=== PATIENT | female | born 1940 | race Caucasian/White ===

== ENCOUNTER 2020-04-01 20:23 | Inpatient (IN) | payer OTHER, MEDICARE ==
[~2020-04-01] VITALS: Ht 162.6 cm; Wt 81.9 kg
--- NOTE | ~2020-04-01 | HC ---
[facility] [place] [address] CONSULTATION Name: ACOSTA SALINAS Room #: 237-P ADM IN M.R.#: [id number] Admission: 04/01/20 Attend Phys: Giulia Montenegro Discharge: Date of : 40 Report #: [id number] THIS REPORT FOR: cc: Maria M Carl MD,Maria M Sheriff,Román Varghese MD ~ DATE OF SERVICE: 04/08/2020 HISTORY OF PRESENT ILLNESS: This is an 80-year-old female patient for whom a consult was called to evaluate the patient because the nurse attending this patient rosaight had noticed that the patient was not moving the left side well. I talked to her multiple times on the phone and subsequently came and saw this patient. It is not clear when it happened. In fact, there is another nurse who was taking care of this patient earlier, and this nurse who is cap and hat production supervisor, who is attending today took care of her on Tuesday. Apparently, she was in a better shape on Tuesday. I reviewed the patient's record and it would appear that the patient did have oxygen desaturation when she came in at least and continued to have trouble with oxygenation. I reviewed the ID notes. I still cannot determine the time of onset in this patient if she had a stroke. Before calling, a noncontrast CT of the head was done. The report is confusing. However, I looked at the films, it showed pretty extensive disease. She has a pretty extensive chronic disease in the brain. On top of that, ____ some attenuation in the left middle cerebral artery distribution, and I am not sure about that. We can discuss the CT first thing in the morning, but if she already has something showing up on the CT scan, that usually means it is an old thing and probably started somewhere about 24 hours ago. I had a long talk with the patient's son to get some history. This patient apparently has been diagnosed with dementia. This happened long time ago, and the son estimate somewhere between 1-2 years ago. He said he gives her the medication. He usually fills up the syringe for insulin. She injects it herself after that. One day, she did not know what to do with the syringe, and then they did further testing and diagnosed her with dementia and put her on Aricept. Subsequently, one day she became aphasic. She was taken to [facility], and there they diagnosed her with stroke. So, the patient had baseline dementia and subsequently she has stroke which caused aphasia. She lives with her son. He says that he has been working from home and so he is there all the time. He prepares meals for her, he gives her the medications, but otherwise she is able to take the shower herself. At one time, the patient used to be on a blood thinner, he did not know what blood thinner the patient was on. She had a GI bleed and it was stopped. She usually goes to [facility] and all her records are in [facility]. She came here because [facility] apparently [facility] [address] [place] [address] CONSULTATION Name: ACOSTA SALINAS Room #: 237-P ADM IN M.R.#: [id number] Admission: 04/01/20 Attend Phys: Giulia Montenegro Discharge: Date of : 40 Report #: [id number] was full. REVIEW OF SYSTEMS: Pretty extensive. Her kidney function is estimated only at 18. Her sodium is 152. Her glucose is 298. Her last white count was 16.8, platelet count is 272. I do not know whether she was ever diagnosed with atrial fibrillation. That was a relevant 14-point review of system I can get, which is very extensive actually in this patient. PAST MEDICAL HISTORY: Positive for stroke and dementia. FAMILY HISTORY: Unremarkable. SOCIAL HISTORY: She lives with her son. PHYSICAL EXAMINATION: Pretty limited. She is awake. When I ask her to follow commands, she does not do that. She is coughing almost continuously. It is very difficult to do any further evaluation because she will not even follow simple commands for me. I tried to do the cranial nerve examination and was unsuccessful. I asked her to move any of her extremity and she will not do that, but she does respond to the pain. Her both plantars are classically upgoing. Her reflexes are absent. That is all the examination I can do. IMAGING: CT scan showed extensive chronic changes consistent with dementia. IMPRESSION: This patient with a known diagnosis of dementia and subsequently developed aphasia and now is having severe multisystem problems. I do not know whether she had a stroke on top of that or not and if the stroke occurred, when did it happen. Some of the notes do indicate that the patient was more communicative before, but they also indicate that in an effort to conserve personal protective equipment, the patient was seen from the bedside window. According to the nurses, she was okay on Tuesday, but when this exactly started is not clear. This patient also had multiple falls before she came in. Situation is difficult in this patient. Firstly, with so many problems going on which can potentially cause encephalopathy and affect the brain, it is very difficult to diagnose a stroke. The problem is even worse because the patient has renal failure and we cannot do a CT angio and doing any intervention will be even more problem in this patient because of the same reason because we have to inject the dye. She is also allergic to DYE according to the son and the patient's chart. The timing of onset is not clear. She has moderate dose of heparin. I discussed all the options with the son. I discussed with him that we can be aggressive and try to do all the testing and see if she is a candidate for any intervention. The other option in this regard is because of her multisystem problem, because of her underlying dementia, because of her stroke which caused [facility] [address] [place] [address] CONSULTATION Name: ACOSTA SALINAS Room #: [facility]- ADM IN M.R.#: [id number] Admission: 04/01/20 Attend Phys: Giulia Montenegro Discharge: Date of : 40 Report #: [id number] aphasia, and now numerous problems which can cause metabolic encephalopathy, it may be desirable to continue conservative care in this patient and not to do any intervention. After discussing all these options with him, the plan is not to do any testing as far as stroke is concerned and continue conservative care. That is a reasonable approach in this patient whose prognosis is extremely guarded because of her aphasia causing stroke, severely abnormal chronic changes on the CT, prior history of dementia for which she is on Aricept, multisystem problems including renal and hyponatremia and hypoxemia, and the onset of the symptoms not clear. Presently, the plan is to continue conservative care after talking all the options with the son, and please call if the things change or decision is made to change the level of the care. I will also talk to piece meat trimmer later in the morning, Thank you very much for this referral. More than 50 minutes of time was spent taking care of this patient today and majority was spent counseling and coordinating, reviewing the images and talking to the nurses multiple times, and having a long talk with the patient's son. By: [id number] Román Sheriff MD /nt
[2020-04-01 20:27] VITALS: BP 156/50
[2020-04-01 21:01] LABS: BE(vivo) -8.5 mmol/L (-2 to +3); PCO2 25.9 mmHg (35.0-45.0); pH 7.382 (7.360-7.450); sO2 90.8 % (92.0-98.0)
[2020-04-01 21:11] LABS: ABSOLUTE NEUTROPHILS 9.3 thou/uL (1.4-8.2); BASOPHILS 0.5 % (0.0-2.0); HEMATOCRIT 33.7 % (37.0-47.0); LYMPHOCYTES 3.4 % (24.0-44.0); MCHC 32.7 g/dL (28.0-37.0); MCV 82.6 fL (80.0-100.0); MONOCYTES 6.6 % (1.0-8.0); PLATELET COUNT 235 thou/uL (150-400); POLYS 89.5 % (36.0-66.0); RBC 4.08 mil/uL (4.20-5.00); RDW 15.3 % (10.5-14.5); WBC 10.3 thou/uL (4.0-11.0)
[2020-04-01] MEDS ORDERED: LEVO-T50 MCG PO (21:17)
[2020-04-01] MEDS ORDERED: NORVASC 2.5 MG2.5 M1 PO (21:18)
[2020-04-01] MEDS ORDERED: HYDRALAZINE 5050 MG PO (21:18)
[2020-04-01] MEDS ORDERED: COZAAR 25 MG TA25 M1 PO (21:19)
[2020-04-01 21:20] LABS: ANION GAP 12 mmol/L (7-16); BUN 58 mg/dL (7-18); CHLORIDE 105 mmol/L (98-107); CO2 18 mmol/L (21-32); CREATININE 3.3 mg/dL (0.6-1.0); GLUCOSE 170 mg/dL (74-106); POTASSIUM 4.9 mmol/L (3.5-5.1); SODIUM 135 mmol/L (136-145)
[2020-04-01] MEDS ORDERED: PROTONIX40 M4 PO (21:20)
[2020-04-01] MEDS ORDERED: TRADJENTA5 MG ×2 (21:21→21:22)
[2020-04-01] MEDS ORDERED: SERTRALINE HCL100 MG PO (21:21)
[2020-04-01] MEDS ORDERED: ASA81BEC PO (21:22)
[2020-04-01] MEDS ORDERED: COSAMIN ASU CA1 EAC1 PO (21:22)
[2020-04-01] MEDS ORDERED: METAMUCIL PLUS1 EACH PO (21:23)
[2020-04-01] MEDS ORDERED: SUPER THERAVIT1 EACH PO (21:23)
[2020-04-01] MEDS ORDERED: TRYPTOPHAN PO (21:24)
[2020-04-01] MEDS ORDERED: CRESTOR5 MG PO (21:24)
[2020-04-01] MEDS ORDERED: ARICEPT10 M1 PO (21:24)
[2020-04-01] MEDS ORDERED: ERGOCALCIFEROL1 GM PO (21:26)
[2020-04-01 21:34] LABS: ALBUMIN 2.2 g/dL (3.4-5.0); DIRECT BILIRUBIN < 0.1 mg/dL (<0.1-0.2); SGOT 52 U/L (15-37); SGPT 24 U/L (30-65); TOTAL BILIRUBIN 0.3 mg/dL (0.2-1.0); TOTAL PROTEIN 6.3 g/dL (6.4-8.2); TROPONIN-I <0.06 ng/mL (<0.06)
[2020-04-02] VITALS (35 sets, daily range): BP systolic 121–153; BP diastolic 37–51
[2020-04-02 07:31] LABS: HEMATOCRIT 32.5 % (37.0-47.0); HEMOGLOBIN 10.7 gm/dL (12.0-15.0); MCH 27.1 pg (26.0-34.0); MCHC 32.9 g/dL (28.0-37.0); MCV 82.3 fL (80.0-100.0); RBC 3.95 mil/uL (4.20-5.00); RDW 15.3 % (10.5-14.5); WBC 8.1 thou/uL (4.0-11.0)
--- NOTE | 2020-04-02 07:45 | EKG ---
[facility] [place] [address] ELECTROCARDIOGRAM REPORT Name: ACOSTA SALINAS Room #: [facility] ADM IN M.R.#: [id number] Admission: 04/01/20 Attend Phys: Giulia Montenegro Discharge: Date of : 40 Report #: [id number] THIS REPORT FOR: cc: Maria M Carl MD, Linda MD Lundgren,Mike Mane MD [facility] ~ THIS REPORT FOR: //name// [facility] ED Test Date: 2020-04-01 Test Time: 20:53:48 Pat Name: ACOSTA SALINAS Department: Room: [facility] Gender: F Desk Lieutenant: jose francisco : 1940 Requested By: Yonis Ignacio Order Number: [id number] MD: Mike Malin Measurements Intervals [place] Rate: 79 P: 77 ID: [id number] QRS: 10 QRSD: 87 T: 30 QT: 366 QTc: 420 Interpretive Statements Sinus rhythm Poor R wave progression No previous ECG available for comparison Electronically Signed On 04-02-2020 7:45:29 CDT by Mike Malin [email or web address] <ELECTRONICALLY SIGNED> By: Mike Malin MD, FACC 04/02/2045 52 52 Mike Malin MD, [facility] /EPI
[2020-04-02 08:31] LABS: ANION GAP 12 mmol/L (7-16); BUN 61 mg/dL (7-18); CALCIUM 8.9 mg/dL (8.5-10.1); CHLORIDE 107 mmol/L (98-107); CHOLESTEROL 117 mg/dL (<200); CO2 18 mmol/L (21-32); CREATININE 3.4 mg/dL (0.6-1.0); GLUCOSE 213 mg/dL (74-106); HDL CHOLESTEROL 46 mg/dL (>40); LDL CHOLESTEROL 49 mg/dL (<100); POTASSIUM 4.5 mmol/L (3.5-5.1); SODIUM 137 mmol/L (136-145); TC:HDL 2.5 Ratio (Not establshd); TRIGLYCERIDE 114 mg/dL (<150); VLDL 23 mg/dL (<40)
[2020-04-02 10:08] LABS: BE(vivo) -9.1 mmol/L (-2 to +3); HCO3 14.4 mmol/L (22.0-26.0); pH 7.381 (7.360-7.450); sO2 86.1 % (92.0-98.0)
[2020-04-02 10:09] LABS: PCO2 24.9 mmHg (35.0-45.0); PO2 50.6 mmHg (80.0-100.0)
[2020-04-02 11:30] LABS: BE(vivo) -10.5 mmol/L (-2 to +3); HCO3 13.8 mmol/L (22.0-26.0); PCO2 26.4 mmHg (35.0-45.0); pH 7.336 (7.360-7.450); sO2 96.3 % (92.0-98.0)
--- NOTE | 2020-04-02 15:45 | NUR ---
ADMIT ICU BATH GIVEN. PLACED ON MONITOR. SEE VSS . TOLORATION BIPAP . RR [address] CAMARGO MADE AWARE. WHEN PT CALMS DOWN RR IN THE MID 30S. MONITOR NOT PICKING UP AL OF PT SHALLOW BREATHS. ATTEMPTED TO CALL PT SON. LEFT MESSAGE.
--- NOTE | 2020-04-02 16:00 | NUR ---
NOTIFIED DR. CAMARGO PT BREATING IN THE 50S AT TIMES. IT SEEMED TO GET BETTER MID 30S ONCE WARMED UP. PT VERY ANXIOUS WHEN TOUCHED.
--- NOTE | 2020-04-02 16:00 | NUR ---
FAILED IV ATTEMTS BY THIS RN AND A CO WORKER. WAITING FOR IV NURSE TO PLACE PICC.
--- NOTE | 2020-04-02 18:00 | NUR ---
PT SON CALLED BACK. HISTORY OBTAINED. UPDATE GIVEN. EMOTIONAL SUPPORT GIVEN.
--- NOTE | 2020-04-02 20:37 | NUR ---
VASCULAR ACCESS CALLED FOR PICC LINE PLACEMENT PT UNABLE TO LAY DOWN FOR CVAD. PICC WAS PLACED WITH PT SITTING UP IN BED DYSPNIC WITH BIPAP ON. PT'S LAVERNE BRACHIAL WAS ATTEMPTED BUT UNABLE TO THREAD CATHETER, SO LAVERNE BASILIC CANNULATED TL 5FR PICC TRIMMED TO 42CM INSERTED TO 2CM EXTERNAL. PT TOLERATED WELL. STAT CXR ORDERED
--- NOTE | 2020-04-02 21:34 | NUR ---
CXR CONFIRMED PICC IN SVC, PICC RELEASED FOR IMMEDIATE USE PER PROTOCOL TO MUD WORKER
[2020-04-03] VITALS (58 sets, daily range): BP systolic 110–149; BP diastolic 36–47
[2020-04-03 01:06] LABS: GLYCOHEMOGLOBIN (HGB A1C) 7.1 % (4.8-5.6)
[2020-04-03 02:23] LABS: BE(vivo) -8.9 mmol/L (-2 to +3); PCO2 26.6 mmHg (35.0-45.0); pH 7.368 (7.360-7.450); sO2 98.8 % (92.0-98.0)
[2020-04-03 02:30] LABS: ABSOLUTE NEUTROPHILS 8.3 thou/uL (1.4-8.2); HEMATOCRIT 30.8 % (37.0-47.0); HEMOGLOBIN 10.1 gm/dL (12.0-15.0); LYMPHOCYTES 3.2 % (24.0-44.0); MCH 26.8 pg (26.0-34.0); MCHC 32.7 g/dL (28.0-37.0); MCV 81.9 fL (80.0-100.0); MONOCYTES 6.2 % (1.0-8.0); PLATELET COUNT 235 thou/uL (150-400); POLYS 90.6 % (36.0-66.0); RBC 3.75 mil/uL (4.20-5.00); RDW 15.6 % (10.5-14.5); WBC 9.2 thou/uL (4.0-11.0)
[2020-04-03 02:37] LABS: ALBUMIN 1.9 g/dL (3.4-5.0); CALCIUM 9.4 mg/dL (8.5-10.1); CREATININE 3.8 mg/dL (0.6-1.0); POTASSIUM 4.3 mmol/L (3.5-5.1); TOTAL BILIRUBIN 0.2 mg/dL (0.2-1.0); TOTAL PROTEIN 5.8 g/dL (6.4-8.2)
--- NOTE | 2020-04-03 03:46 | NUR ---
This RN to bedside at 1900. Pt currently on 60% Bipap and RR from 20-40bpm. This RN called Dr Craig at 2300 to update him on patient status. Dr Craig to evaluate at bedside around 0000. Dr Craig ordered an ABG and started pt on precedex gtt for anxiety- which I thought could be contribuiting to her high RR. Pt also has only had 230 urine output out as of 0330. Dr Craig ordered 25g of albumin and 40 of lasix in the AM. Pt down to 40% on Bipap and RR is better. Pt also has confirmed COVID positive results from this facility. Results communicated to Dr. Craig. Will continue to monitor.
--- NOTE | 2020-04-03 11:57 | NUR ---
chart review, unable to visit [facility] on ppe, + covid. requiring use of bipap. cm visited with son tony, who going to email dpoa paper work to hospital so can have it on file. marciano lives with kika jimenez, ranch style home. 2 step from front door in or out of home, then all in main level. independent when feeling ok. has walker but never used it before. tony manage her medication daily. had [facility] in past interim and would use them again. been to skilled rehab at [facility] and [facility] in past. no longer drives vehicle per son tony. noted in chart she has had falls at home. will cont following as needed for dc needs.
--- NOTE | 2020-04-03 15:39 | NUR ---
ASSUMED CARE @ 0700 04/03/20, PT ASSESSMENTS AND VSS COMPLETE PER ICU PROTOCOL. PT ENCOUNTERED ON PRECEDEX GTT, PT BRADYCARDIAC IN THE 50'S, THEN HR GOES IN THE 40'S, RN TITRATES PRECEDEX DOWN, HR DIPS IN THE 30'S, PRECEDEX TURNED OFF, DR CAMARGO MADE AWARE, LAB ORDERS RECIEVED. LAB RESULTS CALLED TO DR CAMARGO, NO NEW ORDERS RECIEVED. PT ENCOUNTERED ON BIPAP THIS AM, 40% FIO2, SATS IN HIGH 90'S, NO SIGNS OF SOB NOTED.
[2020-04-04] VITALS (28 sets, daily range): BP systolic 134–168; BP diastolic 38–68
[2020-04-04 02:39] LABS: ABSOLUTE NEUTROPHILS 13.1 thou/uL (1.4-8.2); BASOPHILS 0.1 % (0.0-2.0); HEMATOCRIT 30.4 % (37.0-47.0); HEMOGLOBIN 9.9 gm/dL (12.0-15.0); LYMPHOCYTES 1.9 % (24.0-44.0); MCH 26.7 pg (26.0-34.0); MCHC 32.4 g/dL (28.0-37.0); MCV 82.4 fL (80.0-100.0); PLATELET COUNT 258 thou/uL (150-400); RBC 3.68 mil/uL (4.20-5.00); RDW 15.6 % (10.5-14.5); WBC 13.6 thou/uL (4.0-11.0)
[2020-04-04 03:02] LABS: ALBUMIN 2.2 g/dL (3.4-5.0); CALCIUM 9.1 mg/dL (8.5-10.1); CREATININE 4.1 mg/dL (0.6-1.0); MAGNESIUM 2.2 mg/dL (1.8-2.4); PHOSPHORUS 4.5 mg/dL (2.5-4.9); POTASSIUM 4.2 mmol/L (3.5-5.1); TOTAL BILIRUBIN 0.3 mg/dL (0.2-1.0); TOTAL PROTEIN 5.8 g/dL (6.4-8.2)
[2020-04-04 03:35] LABS: INR 1.1; PROTIME 11.2 Seconds (9.3-11.4)
[2020-04-04 03:40] LABS: FIBRINOGEN 551.2 mg/dL (210-360)
--- NOTE | 2020-04-04 13:25 | NUR ---
pt cont to requirer bipap FIO2 40, cont with iv meds. no anticipated weekend dc from hospital. will cont following as needed for dc needs. cm visited with son tony yesterday and dpoa paperwork placed on pt chart.
--- NOTE | 2020-04-04 18:27 | NUR ---
ASSUMED CARE AT 0700. PATIENT AFEBRILE. NO BM. ADEQUATE UOP. PATIENT SWITCHED FROM BIPAP MASK TO HIGH FLOW NASAL CANNULA AT 10 L. PATIENT TOLERATED HIGH FLOW NC WELL. TPN TO BE STARTED TONIGHT. SON/DPOA CONTACTED AT 1800 AND HE AND THE PATIENT WERE UPDATED AND EDUCATED ON THE PLAN OF CARE AND PATIENT CONDITION. IV FLUIDS STARTED. PATIENT PROGRESSING TOWARDS THE PLAN OF CARE.
[2020-04-05] VITALS (24 sets, daily range): BP systolic 139–165; BP diastolic 38–68
[2020-04-05 04:34] LABS: INR 1.1; PROTIME 11.1 Seconds (9.3-11.4)
[2020-04-05 04:39] LABS: FIBRINOGEN 411.7 mg/dL (210-360)
[2020-04-05 04:42] LABS: BASOPHILS 0.3 % (0.0-2.0); HEMATOCRIT 28.2 % (37.0-47.0); HEMOGLOBIN 9.2 gm/dL (12.0-15.0); LYMPHOCYTES 1.2 % (24.0-44.0); MCH 26.8 pg (26.0-34.0); MCHC 32.7 g/dL (28.0-37.0); MONOCYTES 3.5 % (1.0-8.0); PLATELET COUNT 272 thou/uL (150-400); RBC 3.44 mil/uL (4.20-5.00); RDW 15.7 % (10.5-14.5); WBC 16.8 thou/uL (4.0-11.0)
[2020-04-05 05:18] LABS: ALBUMIN 2.1 g/dL (3.4-5.0); CALCIUM 9.3 mg/dL (8.5-10.1); CREATININE 3.9 mg/dL (0.6-1.0); POTASSIUM 3.9 mmol/L (3.5-5.1); TOTAL BILIRUBIN 0.3 mg/dL (0.2-1.0); TOTAL PROTEIN 5.6 g/dL (6.4-8.2)
--- NOTE | 2020-04-05 06:40 | NUR ---
PATIENT REMAIN A/O TO PERSON AND PLACE. DENIES SOB, N/V, PAIN. ON 8L VIA HFNC. AFEBRILE. VSS. MANLEY IN PLACE WITH MINIMAL U/O. MANLEY CARE PROVIDED. PLASMA TRANSFUSED. TOLERATED WELL. DENIES NEEDS. WILL KEEP MONITORING.
--- NOTE | 2020-04-05 18:23 | NUR ---
ASSUMED CARE THIS AM, ALERT AND ORIENTED TO PLACE AND PERSON. MOUNS BUT DENIES ANY PAIN, ANXIOUS, DR HUMPHREY NOTIFIED AND ORDERS FOR ATIVAN RECIEVED AND MEDICATED. VS WITHIN LIMITS. REMIANS ON 10L O2 HIGH FLOW, AND VENTI MASK AT 55%. MANLEY TO DD WITH ADQUITE AMOUNT OF URINE, AND WILL CONTINUE WITH POC.
[2020-04-06] VITALS (28 sets, daily range): BP systolic 143–189; BP diastolic 42–109
[2020-04-06 05:10] LABS: CALCIUM 9.7 mg/dL (8.5-10.1); PHOSPHORUS 3.1 mg/dL (2.5-4.9)
[2020-04-06 05:20] LABS: CREATININE 2.7 mg/dL (0.6-1.0)
--- NOTE | 2020-04-06 16:02 | NUR ---
ASSESSMENT CHARTED, VSS AND AFEBRILE, BG 400 AT 12, DR HUMPHREY NOTIFIED, AND SLIDING SCALE ADJUSTED. Q2 TURN POSITIONED FOR COMFORT NEEDED. PATIENT RESTLESS AT TIMED AND MEDICATED AND MEDICATED INDICATED. AND WILL CONTINUE WITH POC.
[2020-04-07] VITALS (23 sets, daily range): BP systolic 111–194; BP diastolic 35–121
--- NOTE | 2020-04-07 06:04 | NUR ---
This RN to beside at 1900. Pt extremely anxious and unable to respond to any orientation questions. Pt also moaning and grimacing when touched or near. This RN gave IV ativan and morphine to help patient relax. Pt SR throughout the night and BP stable. There was a period where patient was consistently satting at 88%. This RN placed pt on 15L nonrebreather for about 30 minutes, patient recovered to 96%, slowly transitioned back to the ventimask, and patient is currently on 50%, and satting 91-91% SaO2. Pt afebrile, adequate urine output and receiving IV fluids and TPN. Pt requiring higher oxygen demand and heavy monitoring, so therefore is not progressing towards goals.
[2020-04-07 06:29] LABS: ALBUMIN 1.5 g/dL (3.4-5.0); CALCIUM 9.9 mg/dL (8.5-10.1); CREATININE 2.6 mg/dL (0.6-1.0); PHOSPHORUS 2.7 mg/dL (2.5-4.9); POTASSIUM 4.2 mmol/L (3.5-5.1); TOTAL BILIRUBIN 0.2 mg/dL (0.2-1.0); TOTAL PROTEIN 5.2 g/dL (6.4-8.2)
[2020-04-07 11:58] LABS: BE(vivo) -4.3 mmol/L (-2 to +3); HCO3 19.6 mmol/L (22.0-26.0); PCO2 31.7 mmHg (35.0-45.0); pH 7.408 (7.360-7.450); sO2 88.6 % (92.0-98.0)
[2020-04-07 11:59] LABS: PO2 53.6 mmHg (80.0-100.0)
--- NOTE | 2020-04-07 13:43 | NUR ---
chart review, marciano requiring higher demands of oxygen. garth spoke with son tony, he just wanted cm to pass on to bedside nurse to [facility] with updates today cm passed on information to bedside nurse. will cont following as needed for dc needs.
--- NOTE | 2020-04-07 15:07 | NUR ---
PATIENT NOT PROGRESSING TOWARDS PLAN OF CARE. PATIENT CONTINUES ON 15L NONREREATHER MASK. WILL CONTINUE TO MONITOR FOR DETERIATION OF STATUS. SPOKE WITH SON ANTONIO SALINAS. GAVE HIM PATIENT UPDATE.
[2020-04-08] VITALS (42 sets, daily range): BP systolic 113–193; BP diastolic 45–131
--- NOTE | 2020-04-08 01:17 | NUR ---
2330 - NURSE ENTERED ROOM TO PERFORM ROUTINE ASSESSMENT. THIS NURSE NOTED THAT THE PTS LEFT PUPIL WAS 5MM AND FIXED, AND RIGHT PUPIL REMAINED THE SAME FROM PREVIOUS ASSESSMENT. PT ALSO APPEARED TO BE FAVORITING THE RIGHT ARM, MOVING IT AROUND, WHILE HOLDING THE LEFT ARM AT HER SIDE. PT MOVING BOTH FEET EQUALLY. AT 1999 PT WAS JUST MOANING AND GROANING, NOT FOLLOWING ANY COMMANDS. THIS RN ATTEMPTED A FULL NIH BUT IT WAS DIFFICULT TO COMPLETE GIVEN FINDINGS FROM 1999 ASSESSMENT. 2341 - PA LINEMAN A CLASS CALLED TWICE TO ATTEMPT TO NOTIFY OF NEURO CHANGES. NO ANSWER. 2343 - DR. GUERRA PAGED. 2346 - CALL BACK FROM DR. GUERRA. ORDER OBTAINED FOR STAT HEAD CT. 2351 - PA LINEMAN A CLASS CALLED AGAIN. UPDATED ON PTS CONDITION. GIVEN A ONETIME ORDER FOR LORAZEPAM TO HELP PT REMAIN STILL DURING HEAD CT. 0108 - RADIOLOGY CALLED WITH CRITICAL RESULTS FROM HEAD CT. 0128 - PA LINEMAN A CLASS CALLED AND UPDATED ON CT SCAN RESULTS. WILL CONSULT NEUROLOGY AND PLAN FOR MRI IN THE MORNING PER PA SESAY.
--- NOTE | 2020-04-08 04:24 | NUR ---
0244 - SPOKE WITH ANTONIO (SON & DPOA). GAVE HIM AN UPDATE ON PTS CONDITION. SON STATED THAT HE WOULD LIKE US TO CONTINUE DOING EVERYTHING WE CAN TO HELP. 0258 - I SPOKE WITH DR. CAMACHO AGAIN AND RELAYED WHAT THE SON HAD SAID. DR. CAMACHO IS COMING IN TO ASSESS THE PT FOR HIMSELF. 8370 - DR. CAMACHO AT BEDSIDE.
[2020-04-08 04:52] LABS: CALCIUM 10.4 mg/dL (8.5-10.1); CREATININE 2.6 mg/dL (0.6-1.0); POTASSIUM 3.6 mmol/L (3.5-5.1)
[2020-04-08 05:05] LABS: HEMATOCRIT 30.9 % (37.0-47.0); HEMOGLOBIN 9.9 gm/dL (12.0-15.0); MCH 26.7 pg (26.0-34.0); MCHC 32.1 g/dL (28.0-37.0); RBC 3.72 mil/uL (4.20-5.00); WBC 19.8 thou/uL (4.0-11.0)
[2020-04-08 10:31] LABS: BE(vivo) -3.4 mmol/L (-2 to +3); HCO3 20.9 mmol/L (22.0-26.0); PO2 64.2 mmHg (80.0-100.0); pH 7.394 (7.360-7.450); sO2 92.6 % (92.0-98.0)
--- NOTE | 2020-04-08 10:57 | NUR ---
SPOKE WITH SON ANTONIO. GAVE HIM UPDATE ON PT CONDITION. REQUESTED TO SPEAK WITH PT BUT WAS INFORMED THAT PT IS NOT COMMUNICATIVE AT THIS TIME. STATES HE WILL CALL BACK LATER.
[2020-04-09] VITALS (27 sets, daily range): BP systolic 107–201; BP diastolic 25–87
--- NOTE | 2020-04-09 03:14 | NUR ---
ASSESSMENT: PT OPENS EYES BUT DOES NOT TRACK. MOANS AND GROANS, DOES NOT FOLLOW COMMANDS. BP WAS ELEVATED 160/90...PRN ENALAPRIL GIVEN WITH GOOD RESULTS. BP NOW 144/49 PT IS NOW A DNR OF 04/08/20. TOLERATING BIPAP WITH 90% FIO2, SATS 99% PT MOVES LEFT ARM VERY SLOWLY. CT NEGATIVE FOR CVA. SR WITH PAC'S PER MONITOR. OCCASSIONALLY ST. FALL PRECAUTIONS IN PLACE. MANLEY PATENT WITH ADEQUATE AMTS OF OUTPUT. NO BM THIS SHIFT. POOR PROGRESS TOWARDS DC GOALS, WILL CONTINUE TO MONITOR.
--- NOTE | 2020-04-09 09:30 | NUR ---
PATIENT IN AFIB WITH RVR WITH VENT RESPONSE [address] TSANG NOTIFIED, CARDIZEM GIVEN PER ORDER.
[2020-04-09 11:02] LABS: CALCIUM 9.9 mg/dL (8.5-10.1); CREATININE 2.3 mg/dL (0.6-1.0); MAGNESIUM 2.2 mg/dL (1.8-2.4); PHOSPHORUS 4.4 mg/dL (2.5-4.9); POTASSIUM 4.5 mmol/L (3.5-5.1)
--- NOTE | 2020-04-09 12:03 | NUR ---
BLOOD GLUCOSE WAS 406. DR TSANG NOTIFIED AND WILL PLACE ORDERS. METOPOROL AND MORPHINE GIVEN FOR AFIB WITH RVR AND AGGITATION.
--- NOTE | 2020-04-09 15:00 | NUR ---
INSULIN DRIP STARTED. ATIVAN AND MORIPINE GIVEN FOR COMFORT.
--- NOTE | 2020-04-09 19:00 | NUR ---
PATIENT NOT PROGRESSING TOWARDS OUTCOME GOALS. INSULIN DRIP TITRATED. DR POWERS IN TO EXAMINE PATIENT. MORPHINE SULFATE AND ATIVAN GIVEN FOR COMFORT AND DYSPNEA.
--- NOTE | 2020-04-09 20:53 | NUR ---
This RN to bedside at 1900. Pt went into new onset afib during day shift, HR somewhat controlled, HR fluctuating between 120's-150's. This RN spoke to LÁZARO Hansen regarding HR. NON DESTRUCTIVE TESTER instructed RN to give PRN dose of metropolol that patient has ordered for high BP. Will give dose and continue to monitor.
[2020-04-10] VITALS (23 sets, daily range): BP systolic 99–141; BP diastolic 29–72
--- NOTE | 2020-04-10 05:58 | NUR ---
This RN did not give not patient ativan or morphine to patient, and patient seems more responsive. Pt groans upon touch or when the lights are turned on. Pt moved all extremities and reacted to painful stimuli, but does not follow commands, speak coherently, or open eyes spontaneously. Pt seems signifantly more awake then the beginning of shift. Still on 90% Bipap and satting upper 90's SaO2. New onset afib with HR in 100's-130's. Patient occasionally got up to 140's HR and per LÁZARO Hansen this RN gave PRN metoprolol and patients HR lowers temperarily. Insulin gtt still on at 3units/hr, and blood sugars are now in therapeutic range for 5 consectutive hours. Now doing Q2 accuchecks. Patient not progressing towards goals, but did not worsen throughout night.
[2020-04-10 09:37] LABS: CALCIUM 9.3 mg/dL (8.5-10.1); CREATININE 2.3 mg/dL (0.6-1.0); MAGNESIUM 2.1 mg/dL (1.8-2.4); PHOSPHORUS 4.3 mg/dL (2.5-4.9); POTASSIUM 4.3 mmol/L (3.5-5.1)
--- NOTE | 2020-04-10 15:54 | NUR ---
ON THE BIPAP ALL DAY, AFIB ON THE MONITOR AND STARTED ON CARDIZEM GTT. WHEN AWAKENED MOANS AND GROANS AND MUMBLES INCOMPREHENSIBLE WORDS. TPN FOR NUTRITION. WILL CONTINUE WITH POC.
--- NOTE | 2020-04-10 16:15 | NUR ---
PER DR. POWERS THIS AFTERNOON HE TALKED TO THE PATIENT'S SON ON THE PHONE AND IS IN FAVOR OF PALLIATIVE CARE ONCE HE'S ABLE TO TALK TO THE REST OF THE FAMILY.
--- NOTE | 2020-04-10 16:55 | NUR ---
dr prado consulted and visit with son via phone call. family to think about palliative care. will cont following as needed for dc needs.
[2020-04-11] VITALS (34 sets, daily range): BP systolic 99–178; BP diastolic 40–88
[2020-04-11 03:41] LABS: HEMATOCRIT 29.3 % (37.0-47.0); HEMOGLOBIN 9.3 gm/dL (12.0-15.0); MCH 26.5 pg (26.0-34.0); MCHC 31.6 g/dL (28.0-37.0); MCV 83.6 fL (80.0-100.0); RBC 3.5 mil/uL (4.20-5.00); WBC 14.8 thou/uL (4.0-11.0)
[2020-04-11 03:46] LABS: CREATININE 2.7 mg/dL (0.6-1.0); POTASSIUM 4.4 mmol/L (3.5-5.1)
--- NOTE | 2020-04-11 06:25 | NUR ---
Pt still not following commands or entirely waking up. Pupils sluggish. Pt moans and groans when RN is near or if patient is stimulated. Remains on Bipap with an FiO2 of 60% and satting in the high 90's. Still on cardizem gtt for new onset afib rvr, HR is still high but doesn't reach over 140's at maximum dosing of cardizem. TPN and fluids running. Patient not progressing towards goals.
--- NOTE | 2020-04-11 15:22 | NUR ---
chart review. pt still requiring bipap. unable to speak with son tony. no anticipated dc needs. will cont following as needed for dc needs. dr prado consulted for possible palliative.
--- NOTE | 2020-04-11 16:01 | NUR ---
ON BIPAP ALL DAY, WITH STIMULATION MOANS AND GETS RESTLESS MOVING HEAD SIDE TO SIDE BUT DOESN'T FOLLOW COMMANDS. WEANING DOWN CARDIZEM HEART RATE TOLERATES. MEDICATED FOR PAIN WITH PRN MEDS. TPN FOR NUTRITION. ASSESSMENT DOCUMENTED. WILL CONTINUE WITH POC AWAITING FAMILY DECISION.
[2020-04-12] VITALS (94 sets, daily range): BP systolic 102–126; BP diastolic 38–54
--- NOTE | 2020-04-12 07:11 | NUR ---
VSS. AFIB ON MONITOR. PATIENT RESTLESS; AGITATED & YELLING INTO BIPAP MASK. PATIENT HYPERTENSIVE, TACHYPNEC; TACHYCARDIAC & SHALLOW BREATHING. PRN ATIVAN GIVEN WITH NO CHANGE IN RESTLESSNESS. PRECEDEX GTT STARTED. PATIENT WAS ABLE TO RELAX AND VITALS IMPROVED. TOTAL URINE OUTPUT OVERNIGHT WAS 600 CC. PATIENT TOLERATING BIPAP. FIO2 WAS INCREASED TO 100 % THIS SHIFT. PATIENT NOT PROGRESSING TOWARDS PLAN OF CARE.
--- NOTE | 2020-04-12 19:07 | NUR ---
PATIENT NOT PROGRESSING IN PLAN OF CARE. PATIENT CONTINUES ON BIPAP 90%. PATIENT FAMILY TO BE MAKING DECSIONS ABOUT PLAN OF CARE. MARGINAL URINE OUTPUT. MD'S AWARE.
[2020-04-13] VITALS (56 sets, daily range): BP systolic 89–163; BP diastolic 45–87
--- NOTE | 2020-04-13 06:36 | NUR ---
VSS. TITRATED CARDIZEM GTT OFF. PATIENT IS AFIB ON MONITOR WITH HR <100. FIO2 100 % ON BIPAP. PT BATHED/LINEN CHANGED. TOTAL URINE OUTPUT THIS SHIFT 450 CC. PT NOT PROGRESSING TOWARDS PLAN OF CARE.
--- NOTE | 2020-04-13 15:59 | NUR ---
PATIENT TAKEN OFF BIPAP AT 1346 AND COMFORT CARE STATUS. PATIENT PASSED AT 1420. ALL MD'S AND DPOA SON (ANTONIO SALINAS) NOTIFIED.
== END 2020-04-13 14:20 | DRG 871 ==
LOC: ER 20:23 → ICU 22:50 → EROBS 22:50 → ICU 04-02 16:17
PROVIDERS: Emergency Medicine; Internal Medicine Pulmonary Disease; Nurse Practitioner Family; Pediatrics; Specialist; ADMIT Hospitalist; ATTEND Hospitalist
PROC: 5A09457 Assistance with Respiratory Ventilation, 24-96 Consecutive Hours, Continuous Positive Airway Pressure (ICD-10-PCS; principal; 2020-04-02)
PROC: 02HV33Z Insertion of Infusion Device into Superior Vena Cava, Percutaneous Approach (ICD-10-PCS; principal; 2020-04-02)
PROC: B548ZZA Ultrasonography of Superior Vena Cava, Guidance (ICD-10-PCS; principal; 2020-04-02)
PROC: XW13325 Transfusion of Convalescent Plasma (Nonautologous) into Peripheral Vein, Percutaneous Approach, New Technology Group 5 (ICD-10-PCS; 2020-04-04)
PROC: 5A09357 Assistance with Respiratory Ventilation, Less than 24 Consecutive Hours, Continuous Positive Airway Pressure (ICD-10-PCS; 2020-04-07)
PROC: 5A09557 Assistance with Respiratory Ventilation, Greater than 96 Consecutive Hours, Continuous Positive Airway Pressure (ICD-10-PCS; 2020-04-08)
DX: A41.89 Other specified sepsis (principal); U07.1 COVID-19; J96.01 Acute respiratory failure with hypoxia; J12.89 Other viral pneumonia; N17.0 Acute kidney failure with tubular necrosis; J81.1 Chronic pulmonary edema; E87.0 Hyperosmolality and hypernatremia; R47.01 Aphasia; I10 Essential (primary) hypertension; R65.20 Severe sepsis without septic shock; E03.9 Hypothyroidism, unspecified; E11.9 Type 2 diabetes mellitus without complications; E78.5 Hyperlipidemia, unspecified; I95.9 Hypotension, unspecified; F03.90 Unspecified dementia, unspecified severity, without behavioral disturbance, psychotic disturbance, mood disturbance, and anxiety; Z66 Do not resuscitate; Z51.5 Encounter for palliative care; Z79.84 Long term (current) use of oral hypoglycemic drugs; Z79.82 Long term (current) use of aspirin; Z79.899 Other long term (current) drug therapy; Z88.1 Allergy status to other antibiotic agents; Z91.041 Radiographic dye allergy status; Z28.89 Immunization not carried out for other reason
CPT/HCPCS: 10078; 27000; 85076